=== PATIENT | female | born 1980 | race Caucasian/White ===

== ENCOUNTER → 2020-03-19 09:59 | Outpatient (BNVA) | payer MEDICAID, SELFPAY | PROVIDERS: PCP Family Medicine; Referring Provider Family Medicine; Visit Provider Internal Medicine Gastroenterology | DX: R11.2 Nausea with vomiting, unspecified (principal); R19.7 Diarrhea, unspecified | CPT/HCPCS: 99213 ==

== ENCOUNTER 2020-04-02 14:43 | Outpatient (REF) | payer MEDICAID, SELFPAY ==
--- NOTE | 2020-04-02 | US_ITS ---
EXAMINATION: US THYROID CLINICAL INFORMATION: Disorder of thyroid. COMPARISON: Previous thyroid ultrasound most recent July 2014 TECHNIQUE: Linear transducer gaitan-scale and color Doppler examination with attention to the region of the thyroid. FINDINGS: SIZE: Measurements of the thyroid lobes and nodules are given in sagittal, anteroposterior and transverse dimensions respectively. Right Thyroid Lobe: Surgically removed. Left Thyroid Lobe: 4.6 x 1.8 x 1.8 cm, volume 8 mL. Parenchyma: The gland echotexture is normal. Thyroid vascularity is normal. Isthmus: 0.3 cm in maximum AP dimension. RIGHT THYROID LOBE: No nodules. ISTHMUS: No nodules. LEFT THYROID LOBE: There is a new complex cystic nodule in the mid left lobe. This has a slightly thickened wall, solid mural nodules, smooth margin, no calcification and peripheral flow NODES: No lymphadenopathy is seen in the tissue surrounding the thyroid gland. IMPRESSION: New complex cystic nodule in the left lobe. Fine-needle aspiration and continued follow-up recommended.
== END 2020-04-02 14:44 | disposition home or self-care (01) ==
LOC: HO.HMGCX 14:43
PROVIDERS: PCP Internal Medicine; Visit Provider Internal Medicine
DX: E07.9 Disorder of thyroid, unspecified (principal)
CPT/HCPCS: 76536

== ENCOUNTER 2020-04-06 13:34 | Outpatient (REF) | payer MEDICAID, SELFPAY | END 2020-04-06 13:35 | disposition home or self-care (01) | LOC: HO.CT 13:34 | PROVIDERS: Visit Provider Internal Medicine Gastroenterology | DX: Z13.89 Encounter for screening for other disorder (principal) ==

== ENCOUNTER 2020-04-24 12:00 | Outpatient (REF) | payer MEDICAID, SELFPAY ==
--- NOTE | 2020-04-24 | US_ITS ---
EXAMINATION: THYROID FINE-NEEDLE ASPIRATION CLINICAL INFORMATION: New complex cystic nodule left thyroid gland COMPARISON: Previous thyroid ultrasound 04/02/2020 TECHNIQUE: Procedure and risks and benefits including bleeding and infection were discussed with the patient and informed consent was obtained. The left neck was prepped and draped in usual sterile fashion. The skin and soft tissues were anesthetized with 1% lidocaine plain. Using ultrasound guidance and a 25-gauge needle, 2 25-gauge FNA specimens were obtained. FINDINGS: There is a complex cystic nodule in the upper to mid left thyroid gland that was targeted for fine-needle aspiration. This appears less cystic and smaller than was seen on previous exam 04/02/2020. Post-FNA, the cystic component is no longer seen and the nodule is difficult to visualize. US/US guided fine needle asp IMPRESSION: Left thyroid fine-needle aspiration.
== END 2020-04-24 12:01 | disposition home or self-care (01) ==
LOC: HO.US 12:00
PROVIDERS: Visit Provider Internal Medicine
DX: E04.1 Nontoxic single thyroid nodule (principal)
CPT/HCPCS: 10005; 88172; 88173; 88177

== ENCOUNTER → 2020-05-02 09:40 | Outpatient (BNVA) | payer MEDICAID, SELFPAY | PROVIDERS: PCP Internal Medicine; Referring Provider Internal Medicine; Visit Provider Internal Medicine | DX: Z76.89 Persons encountering health services in other specified circumstances (principal) ==

== ENCOUNTER 2020-08-02 10:46 | Outpatient (REF) | payer MEDICAID, SELFPAY ==
--- NOTE | 2020-08-02 11:07 | PM.OP ---
Brief Operative Note Date of Service: 08/02/20 Surgeon: EXAMINATION: US THYROID CLINICAL INFORMATION: Multinodular Thyroid COMPARISON: Prior TECHNIQUE: Linear transducer gaitan-scale and color Doppler examination with attention to the region of the thyroid. FINDINGS: SIZE: Measurements of the thyroid lobes and nodules are given in sagittal, anteroposterior and transverse dimensions respectively. Right Thyroid Lobe: Surgically absent. Left Thyroid Lobe: 5.3 x 1.5 x 1.7 cm, volume 6.9 mL. Parenchyma: The gland echotexture is heterogenous. Thyroid vascularity is normal. Isthmus: 0.3 cm in maximum AP dimension. LEFT THYROID LOBE: There is 1 nodule. There is a 0.5 x 0.7 x 0.4 cm cystic nodule. Smooth margins, normal vascularity and no internal calcifications. NODES: No lymph nodes were assessed. IMPRESSION: A diffusely heterogenous thyroid gland with multiple fibrotic bands. 1 small cystic nodule in the L lobe but no other nodules visualized. R lobe is surgically absent. Estimated blood loss (mL): 0
== END 2020-08-02 10:47 | disposition home or self-care (01) ==
LOC: HO.US 10:46
PROVIDERS: Visit Provider Internal Medicine
DX: E04.1 Nontoxic single thyroid nodule (principal)
CPT/HCPCS: 76536

== ENCOUNTER 2020-08-06 12:47 | Outpatient (REF) | payer MEDICAID, SELFPAY ==
--- NOTE | ~2020-08-06 | CT_ITS ---
EXAMINATION: CT ENTEROGRAPHY ABDOMEN AND PELVIS WITH CONTRAST CLINICAL INFORMATION: Other fecal abnormalities COMPARISON: Gastric emptying study 08/05/2019 TECHNIQUE: Helical axial CT images through the abdomen and pelvis were obtained after the patient was injected with 85 mL Omnipaque 350 intravenous contrast which was administered without adverse effect. Coronal and sagittal reformatted images were obtained thick at the technologist's workstation. This CT examination was performed using dose optimization techniques as appropriate, variously including the following: *Automated exposure control *Adjustment of mA and/or kV according to patient size (this includes techniques or standardized protocols for targeted exams where dose is matched to indication/reason for exam; i.e. extremities or head) *Use of iterative reconstruction technique DLP: 696 mGy-cm FINDINGS: GASTROINTESTINAL FINDINGS: Stomach: Well-distended and normal in appearance. Small intestine: The small bowel is only partially distended. There are collapsed loops of proximal small bowel. No abnormal small bowel wall thickening or dilation. No architectural distortion or tethering. Large intestine: Well-distended and normal in appearance. No perirectal changes demonstrated. The appendix is normal. Additional findings: No abnormal enhancement of the vasa recta or significant mesenteric or retroperitoneal lymphadenopathy is seen. No abdominal abscess or fistulous tract demonstrated. ABDOMINAL AND PELVIC CT FINDINGS: Liver, gallbladder, biliary tract: Liver is diffusely hypoenhancing consistent with diffuse hepatic steatosis. The liver is enlarged as well extending lateral to the spleen. No biliary ductal dilatation. There is some focal fatty sparing adjacent the gallbladder fossa. Pancreas: Normal. Spleen: Normal. Adrenal glands and kidneys: No adrenal mass. Symmetric bilateral renal enhancement. No hydronephrosis, calculi, or mass. Ureters and bladder: No hydroureter. Normal urinary bladder. Lymphovascular structures: Normal caliber aorta. No lymphadenopathy. Bones: No acute or suspicious osseous abnormality. Lung bases: Bilateral breast implants. Lung bases are clear. Normal heart size. CT/CT enterography IMPRESSION: Hepatomegaly and severe diffuse hepatic steatosis. No abnormal bowel wall thickening or enhancement seen.
[2020-08-06] MEDS: iohexoL 350 MG/ML 100 ML INFUS..BTL 85 ML IV (15:32)
[2020-08-06] MEDS: Sorbitol/Mannit/Xanth Imaging 500 ML LIQUID 1500 ML PO (15:36)
== END 2020-08-06 12:48 | disposition home or self-care (01) ==
LOC: HO.US 12:47
PROVIDERS: Visit Provider Internal Medicine Gastroenterology
DX: R11.2 Nausea with vomiting, unspecified (principal); R19.5 Other fecal abnormalities
CPT/HCPCS: 74177; Q9967

== ENCOUNTER 2020-08-08 13:23 | Outpatient (REF) | payer MEDICAID, SELFPAY ==
[2020-08-09 16:12] LABS: C. trachomatis RNA TMA NOT DETECTED (NOT DETECTED); N. gonorrhoeae RNA TMA NOT DETECTED (NOT DETECTED)
[2020-08-11 06:37] LABS: HPV mRNA E6/E7 rflx Not Detected (Not Detected)
== END 2020-08-08 13:24 | disposition home or self-care (01) ==
LOC: HO.LAB 13:23
PROVIDERS: Visit Provider Obstetrics & Gynecology
DX: Z01.419 Encounter for gynecological examination (general) (routine) without abnormal findings (principal); B37.3 Candidiasis of vulva and vagina; Z20.2 Contact with and (suspected) exposure to infections with a predominantly sexual mode of transmission; E83.52 Hypercalcemia; E04.1 Nontoxic single thyroid nodule; Z88.0 Allergy status to penicillin; Z87.891 Personal history of nicotine dependence
CPT/HCPCS: 36415; 87491; 87591; 87624; 88142

== ENCOUNTER → 2020-08-22 08:13 | Outpatient (BNVA) | payer MEDICAID, SELFPAY | PROVIDERS: PCP Internal Medicine; Visit Provider Internal Medicine ==

== ENCOUNTER → 2020-08-24 10:27 | Outpatient (BNVA) | payer MEDICAID, SELFPAY | PROVIDERS: PCP Internal Medicine; Visit Provider Internal Medicine Gastroenterology ==

== ENCOUNTER → 2020-10-17 08:04 | Outpatient (BNVA) | payer MEDICAID, SELFPAY | PROVIDERS: PCP Internal Medicine; Visit Provider Internal Medicine ==

== ENCOUNTER → 2020-12-10 07:54 | Outpatient (BNVA) | payer MEDICAID, SELFPAY | PROVIDERS: PCP Internal Medicine; Visit Provider Internal Medicine ==

== ENCOUNTER 2021-02-01 15:37 | Outpatient (REF) | payer MEDICAID, SELFPAY ==
--- NOTE | ~2021-02-01 | US_ITS ---
EXAMINATION: US DIAGNOSTIC ULTRASOUND BREAST, LEFT CLINICAL INFORMATION: Probable fibroadenoma 8:00 left breast. Follow-up. COMPARISON: Targeted left breast ultrasound 01/16/2020, 03/04/2019. TECHNIQUE: Ultrasound left breast is targeted to the lower inner quadrant. Grayscale imaging and color Doppler are performed without and with harmonics. FINDINGS: The circumscribed nodule 8:00 position 6 cm from nipple is stable in size and contour. Current dimensions are 1.2 x 0.9 x 0.6 cm. Prior measurements are 1.2 x 0.9 x 0.6 cm on prior ultrasound 01/16/2020 and 1.1 x 0.8 x 0.6 cm on initial exam 03/04/2019. The nodule is now considered to be benign. Results are discussed with the patient at time of visit. US/US breast LT limited IMPRESSION: Stable nodule 8:00 left breast, likely fibroadenoma. ASSESSMENT: BI-RADS 2: Benign RECOMMENDATION: Routine annual mammography screening, beginning age 40, or earlier as clinical risk factors warrant. This patient's information was entered into a reminder system with a target due date for their next mammogram.
== END 2021-02-01 15:38 | disposition home or self-care (01) ==
LOC: HO.MAMMO 15:37
PROVIDERS: Visit Provider Obstetrics & Gynecology
DX: D24.2 Benign neoplasm of left breast (principal)
CPT/HCPCS: 76642

== ENCOUNTER → 2021-03-05 09:31 | Outpatient (BNVA) | payer MEDICAID, SELFPAY | PROVIDERS: PCP Internal Medicine; Visit Provider Internal Medicine Gastroenterology ==